=== PATIENT | male | born 1960 | race African-American/Black ===

== ENCOUNTER 2016-11-06 20:04 | Emergency (ER) | payer SELFPAY ==
[~2016-11-06] VITALS: Ht 195.6 cm; Wt 112.2 kg
[2016-11-06 20:09] VITALS: BP 142/101; PULSE 90; RESP 16; TEMP 98.6; O2SAT 98
[2016-11-06] MEDS ORDERED: METF1000 PO (20:30)
[2016-11-06] MEDS ORDERED: ACETAMINOPHEN/HYDROcodone 325 MG/5 MG TAB PO ONE (20:30)
[2016-11-06] MEDS ORDERED: HYDR25TA5 PO (20:30)
[2016-11-06] MEDS ORDERED: AMLO10 PO (20:30)
[2016-11-06] MEDS ORDERED: ENAL20TA PO (20:30)
--- NOTE | 2016-11-06 20:30 | PD ---
HPI Chief Complaint: Injury Time Seen by Provider: 20:30 Travel History International Travel<30 days: No Contact w/Intl Traveler<30days: No Traveled to known affect area: No History of Present Illness HPI 56-year-old male presents to the emergency department for evaluation of left knee pain for one week. Denies any known injury or trauma to the left knee. States that the pain is to the medial and lateral anterior aspects. Pain is aggravated with movement and palpation. Denies any alleviating factors. He has not taken anything for symptoms so far. Describes it as a throbbing pain. Denies any fever, chills, nausea, vomited, numbness or tingling, weakness. He has been ambulating on the leg. Denies any prior injury or trauma to the knee. Patient is also requesting refills of blood pressure medication as he has been out for 3 weeks. PFSH Past Medical History High Cholesterol: Yes Diabetes: Yes (metformin) Patient Takes Glucophage: Yes Hypertension: Yes Influenza Vaccination: Yes Social History Alcohol Use: No Tobacco Use: Yes (1 ppd) Substance Use: No Allergies-Medications (Allergen,Severity, Reaction): Coded Allergies: No Known Allergies (Unverified , 11/06/16) Reported Meds & Prescriptions Reported Meds & Active Scripts Active Amlodipine (Amlodipine Besylate) 10 Mg Tab 10 Mg PO DAILY Naproxen 500 Mg Tab 500 Mg PO BID 7 Days Reported Humulin R Inj (Insulin Human Regular) 1,000 Unit/10 Ml Vial 1-9 Units SQ ACHS Max dose at bedtime( )units; sugars < 70(0)units; sugars 150-199,(1)unit; sugars 200-249(3)units; sugars 250-299,(5)units; sugars 300-349(7)units; sugars more than 349(9)units. Hydrochlorothiazide 25 Mg Tab Unknown Dose PO DAILY Norvasc (Amlodipine Besylate) 10 Mg Tab 10 Mg PO DAILY Enalapril (Enalapril Maleate) 20 Mg Tab Unknown Dose PO DAILY Metformin (Metformin HCl) 1,000 Mg Tab 1,000 Mg PO BIDPC With meals Review of Systems Except as stated in HPI: all other systems reviewed are Neg Physical Exam Narrative GENERAL: Well-nourished and well-developed pleasant patient in no acute distress who is nontoxic appearing. SKIN: Warm and dry. HEAD: Normocephalic and atraumatic. EYES: No injection, drainage, or hyphema noted. PERRLA. EOMI. ENT: No nasal drainage noted. Oropharynx is clear. NECK: Supple and the trachea is midline. CARDIOVASCULAR: Regular rate and rhythm. RESPIRATORY: Breath sounds are equal bilaterally with no accessory muscle use, wheezing, rhonchi, or crackles. MUSCULOSKELETAL: Tenderness to palpation of the anterior medial and lateral aspects of the knee. Patient has full range motion of the left knee however pain is elicited with flexion. Negative AP drawer sign, the joint is stable. DP pulses are 2+ bilaterally. Sensation is intact. No obvious deformities, swelling, cyanosis, or ecchymosis is present throughout the upper and lower extremities. Patient has full range of motion without any signs of neurovascular compromise. NEUROLOGICAL: Awake, alert, and oriented. Normal speech and gait. Cranial nerves are grossly intact. Data Data Last Documented VS Vital Signs Date Time Temp Pulse Resp B/P Pulse Ox O2 Delivery O2 Flow Rate FiO2 11/06/16 20:09 98.6 90 16 142/101 98 Orders Acetamin-Hydrocod 325-5 Mg (Dighton 5-325 (11/06/16 20:30) Knee, Complete (4vws) (11/06/16 20:29) [facility] Medical Decision Making Medical Screen Exam Complete: Yes Emergency Medical Condition: Yes Differential Diagnosis Sprain versus arthritis versus gout Narrative Course 56-year-old male presents to the emergency department for evaluation of left knee pain for one week. Patient is afebrile, vital signs are stable. He is slightly hypertensive with a blood pressure 142/101 however has not taken his blood pressure medication in the last 3 weeks. The patient's left lower extremity is neurovascularly intact. X-ray imaging of the left knee has been ordered and is pending. Patient is administered Lortab 5325 milligrams orally. X-ray of the left knee shows moderate pyrophosphate arthropathy, no acute abnormalities. Discussed x-ray findings with the patient. He'll be discharged with a prescription for NSAIDs and a refill of his amlodipine. He is given resources for finding a primary care physician in the area. Patient verbalizes understanding and agreement with treatment plan. I discussed the case with my attending physician Dr. Mclaughlin who is aware of the patients history, physical examination findings, and treatment plan. Diagnosis Primary Impression: Left knee pain Qualified Code: M25.562 - Acute pain of left knee Additional Impression: Medication refill Referrals: [facility] Primary Care Physician Patient Instructions: General Instructions, Knee Pain (ED), Osteoarthritis (ED) Additional Instructions: Matt wrap. Elevate. Apply ice for 20 minutes on, 20 minutes off. Take medications as prescribed. Follow-up with your Primary Care Physician. Return to the ED for any acute worsening of symptoms. Med/Other Pt SpecificInfo: Prescription(s) given Scripts Amlodipine 10 Mg Tab10 Mg PO DAILY #30 TAB Ref 0 Prov:Doris Mclaughlin MD 11/06/16 Naproxen 500 Mg [id number] Mg PO BID 7 Days Ref 0 Prov:Doris Mclaughlin MD 11/06/16 Disposition: 01 DISCHARGE HOME Condition: Stable Mine Banerjee Nov 06, 2016 20:30
[2016-11-06] MEDS ORDERED: INSU100V2 SQ (20:38)
--- NOTE | 2016-11-06 21:01 | RADHPO ---
EXAM DATE/TIME: 11/06/2016 20:41 [facility] COMPARISON: No previous studies available for comparison. INDICATIONS : Left knee pain and swelling. MEDICAL HISTORY : None. SURGICAL HISTORY : None. ENCOUNTER: Initial ACUITY: 3 days PAIN SCORE: 7/10 LOCATION: Left knee FINDINGS: Chondrocalcinosis is present indicating pyrophosphate deposition disorder. Moderate arthritic changes are present in Tricompartmental distribution. There is a small suprapatellar effusion. There is no e vidence of fracture or destructive change. CONCLUSION: Moderate pyrophosphate arthropathy Marky Polk MD on November 06, 2016 at 20:58 Board Certified Radiologist. This report was verified electronically.
[2016-11-06] MEDS ORDERED: AMLO10TA2 PO (21:18)
[2016-11-06] MEDS ORDERED: NAPR500T PO (21:18)
== END 2016-11-06 21:26 | disposition home or self-care (01) ==
LOC: PHEFT 20:04
DX: M25.562 Pain in left knee (principal)
CPT/HCPCS: 73564; 99283

== ENCOUNTER 2016-11-28 20:15 | Emergency (ER) | payer SELFPAY ==
[~2016-11-28] VITALS: Ht 195.6 cm; Wt 111.6 kg
[~2016-11-28 20:15] MED LIST: AMLO10 PO; AMLO10TA2 PO; ENAL20TA PO; HYDR25TA5 PO; INSU100V2 SQ; METF1000 PO; NAPR500T PO
[2016-11-28 20:18] VITALS: BP 157/108; PULSE 102; RESP 14; TEMP 98.5; O2SAT 98
[2016-11-28] MEDS ORDERED: LISI2.5T3 PO (20:32)
--- NOTE | 2016-11-28 21:16 | PD ---
HPI Chief Complaint: Foreign Body Time Seen by Provider: 21:00 Travel History International Travel<30 days: No Contact w/Intl Traveler<30days: No Traveled to known affect area: No History of Present Illness HPI 56-year-old male presents to the emergency room for evaluation of a foreign body to his scalp. Patient was working in the yard when he got a spike from a love stuck in his scalp. His and mother were unable to get it out. He reports moderate pain when he lay his head on the pillow and during the shower. He has not taken anything for pain. History of hypertension and diabetes. PFSH Past Medical History High Cholesterol: Yes Diabetes: Yes Patient Takes Glucophage: Yes Hypertension: Yes Reproductive: Yes (Genital herpes) Tetanus Vaccination: < 5 Years Influenza Vaccination: Yes Past Surgical History Surgical History: No Previous Surgery Social History Alcohol Use: No Tobacco Use: Yes (1 PPD) Substance Use: No Allergies-Medications (Allergen,Severity, Reaction): Coded Allergies: No Known Allergies (Unverified , 11/28/16) Reported Meds & Prescriptions Reported Meds & Active Scripts Active Naproxen 500 Mg Tab 500 Mg PO BID 7 Days Reported Lisinopril 2.5 Mg Tab 2.5 Mg PO DAILY Humulin R Inj (Insulin Human Regular) 1,000 Unit/10 Ml Vial 1-9 Units SQ ACHS Max dose at bedtime( )units; sugars < 70(0)units; sugars 150-199,(1)unit; sugars 200-249(3)units; sugars 250-299,(5)units; sugars 300-349(7)units; sugars more than 349(9)units. Hydrochlorothiazide 25 Mg Tab Unknown Dose PO DAILY Norvasc (Amlodipine Besylate) 10 Mg Tab 10 Mg PO DAILY Enalapril (Enalapril Maleate) 20 Mg Tab Unknown Dose PO DAILY Metformin (Metformin HCl) 1,000 Mg Tab 1,000 Mg PO BIDPC With meals Review of Systems Except as stated in HPI: all other systems reviewed are Neg Physical Exam Narrative GENERAL: Well-nourished, well-developed male in no acute distress. Afebrile. Ambulatory. SKIN: Warm and dry. There is a small foreign body in the left lateral scalp. No swelling erythema or induration. No bleeding. HEAD: Normocephalic. EYES: No scleral icterus. No injection or drainage. NECK: Supple, trachea midline. No JVD or lymphadenopathy. CARDIOVASCULAR: Regular rate and rhythm without murmurs, gallops, or rubs. RESPIRATORY: Breath sounds equal bilaterally. No accessory muscle use. PSYCHIATRIC: No delusional thought processes. No hallucinations. Data Data Last Documented VS Vital Signs Date Time Temp Pulse Resp B/P Pulse Ox O2 Delivery O2 Flow Rate FiO2 11/28/16 20:18 98.5 102 14 157/108 98 MDM Medical Decision Making Medical Screen Exam Complete: Yes Emergency Medical Condition: Yes Medical Record Reviewed: Yes Differential Diagnosis Foreign body versus infection versus wound Narrative Course 56-year-old male presents to the emergency room for evaluation of foreign body to his left lateral scalp. Patient was stabbed in the head with the above the shoulder yardwork earlier today. He was unable to obtain the foreign body. Physical exam reveals a 0.5 cm spiked, wooden foreign body to the left lateral scalp. No evidence of infection. It was removed without difficulty using tweezers. Patient was discharged with wound care instructions and told to follow up with a PCP return for worsening symptoms. He understands and agrees to plan. Diagnosis Primary Impression: Foreign body of scalp Qualified Code: S00.05XA - Foreign body of scalp, initial encounter Referrals: Primary Care Physician Patient Instructions: General Instructions, Soft Tissue Foreign Body (ED) Additional Instructions: Rest and drink plenty of fluids. Keep area clean and dry. Apply triple antibiotic ointment or alcohol daily until healed. Follow-up with a primary care physician. Return to the emergency room for worsening symptoms. Med/Other Pt SpecificInfo: Prescription(s) given Disposition: 01 DISCHARGE HOME Condition: Stable Breana Clements November 28, 2016 21:16
== END 2016-11-28 21:20 | disposition home or self-care (01) ==
LOC: PHEFT 20:15
DX: S01.04XA Puncture wound with foreign body of scalp, initial encounter (principal); I10 Essential (primary) hypertension; E11.9 Type 2 diabetes mellitus without complications; E78.00 Pure hypercholesterolemia, unspecified; F17.210 Nicotine dependence, cigarettes, uncomplicated; W45.8XXA Other foreign body or object entering through skin, initial encounter; Y93.H9 Activity, other involving exterior property and land maintenance, building and construction; Y92.007 Garden or yard of unspecified non-institutional (private) residence as the place of occurrence of the external cause; Y99.8 Other external cause status
CPT/HCPCS: 99283

== ENCOUNTER 2016-12-29 19:08 | Observation (INO) | payer OTHER ==
[~2016-12-29] VITALS: Ht 195.6 cm; Wt 109.6 kg
[2016-12-29] VITALS (10 sets, daily range): BP systolic 122–168; BP diastolic 8–103; PULSE 79–88; RESP 17–20; TEMP 98.9; O2SAT 97–99
[~2016-12-29 19:08] MED LIST changes: -AMLO10TA2 PO; +LISI2.5T3 PO
[2016-12-29] MEDS ORDERED: NITROGLYCERIN 0.4 MG SL 25 TABS/BTL SL STA (19:22)
[2016-12-29] MEDS ORDERED: ASPIRIN 81 MG CHEW TAB PO STA (19:22)
[2016-12-29] MEDS ORDERED: SODIUM CHLOR 0.9% 1000 ML INJ 1,000 ML IV ONE (19:22)
--- NOTE | 2016-12-29 19:28 | PD ---
HPI Chief Complaint: Chest Pain Time Seen by Provider: 19:17 Travel History International Travel<30 days: No Contact w/Intl Traveler<30days: No Traveled to known affect area: No History of Present Illness HPI This 56-year-old male is complaining of chest pain. He says he started having pain at around 1:00 this afternoon. It is a pain over the lower sternal area and there is been coming and going since then. He has not been short of breath. There is no radiation of the pain. He has not been diaphoretic. He is not having pain right now, he says it went away just a few minutes before I saw him. He has no history of heart disease. He does smoke cigarettes. He has a history of hypertension and diabetes. He does not have a physician at this time. His most recent episode of pain lasted about half an hour PFSH Past Medical History High Cholesterol: Yes Diabetes: Yes Hypertension: Yes Reproductive: Yes (Genital herpes) Social History Alcohol Use: No Tobacco Use: Yes (1 PPD) Substance Use: No Allergies-Medications (Allergen,Severity, Reaction): Coded Allergies: No Known Allergies (Unverified , 12/29/16) Reported Meds & Prescriptions Reported Meds & Active Scripts Active Naproxen 500 Mg Tab 500 Mg PO BID 7 Days Reported Lisinopril 2.5 Mg Tab 2.5 Mg PO DAILY Humulin R Inj (Insulin Human Regular) 1,000 Unit/10 Ml Vial 1-9 Units SQ ACHS Max dose at bedtime( )units; sugars < 70(0)units; sugars 150-199,(1)unit; sugars 200-249(3)units; sugars 250-299,(5)units; sugars 300-349(7)units; sugars more than 349(9)units. Hydrochlorothiazide 25 Mg Tab Unknown Dose PO DAILY Norvasc (Amlodipine Besylate) 10 Mg Tab 10 Mg PO DAILY Enalapril (Enalapril Maleate) 20 Mg Tab Unknown Dose PO DAILY Metformin (Metformin HCl) 1,000 Mg Tab 1,000 Mg PO BIDPC With meals Review of Systems General / Constitutional: No: Fever, Chills Eyes: No: Diploplia, Blurred Vision HENT: No: Headaches, Vertigo Cardiovascular: Positive: Chest Pain or Discomfort, No: Palpitations Respiratory: No: Cough, Shortness of Breath Gastrointestinal: No: Nausea, Vomiting Genitourinary: No: Frequency, Dysuria Musculoskeletal: No: Myalgias, Arthralgias Skin: No Itching, No Dryness Endocrine: No: Heat Intolerance, Cold Intolerance Hematologic/Lymphatic: No: Easy Bruising Physical Exam Narrative GENERAL: Well-developed male SKIN: Focused skin assessment warm/dry. HEAD: Atraumatic. Normocephalic. EYES: Pupils equal and round. No scleral icterus. No injection or drainage. ENT: No nasal bleeding or discharge. Mucous membranes pink and moist. NECK: Trachea midline. No JVD. CARDIOVASCULAR: Regular rate and rhythm. No murmur appreciated. There is no chest wall tenderness RESPIRATORY: No accessory muscle use. Clear to auscultation. Breath sounds equal bilaterally. GASTROINTESTINAL: Abdomen soft, non-tender, nondistended. Hepatic and splenic margins not palpable. MUSCULOSKELETAL: No obvious deformities. No clubbing. No cyanosis. No edema. NEUROLOGICAL: Awake and alert. No obvious cranial nerve deficits. Motor grossly within normal limits. Normal speech. PSYCHIATRIC: Appropriate mood and affect; insight and judgment normal. Data Data Last Documented VS Vital Signs Date Time Temp Pulse Resp B/P Pulse Ox O2 Delivery O2 Flow Rate FiO2 12/29/16 20:35 82 17 128/68 97 Room Air 12/29/16 19:18 98.9 Orders Troponin I (12/29/16 19:22) Complete Blood Count With Diff (12/29/16 19:22) Basic Metabolic Panel (Bmp) (12/29/16 19:22) Magnesium (Mg) (12/29/16 19:22) Prothrombin Time / Inr (Pt) (12/29/16 19:22) Act Partial Throm Time (Ptt) (12/29/16 19:22) B-Type Natriuretic Peptide (12/29/16 19:22) Chest, Single Ap (12/29/16 19:22) Electrocardiogram (12/29/16 19:22) Oxygen Administration (12/29/16 19:22) Iv Access Insert/Monitor (12/29/16 19:22) Oximetry (12/29/16 19:22) Sodium Chlor 0.9% 1000 Ml Inj (Ns 1000 M (12/29/16 19:22) Sodium Chloride 0.9% Flush (Ns Flush) (12/29/16 19:30) Aspirin Chew (Aspirin Chew) (12/29/16 19:22) Nitroglycerin Sl (Nitrostat Sl) (12/29/16 19:22) Nitroglycerin 2% Oint (Nitroglycerin 2% (12/29/16 19:30) Amlodipine (Norvasc) (12/30/16 09:00) Labs Laboratory Tests Test 12/29/16 19:20 White Blood Count 10.1 TH/MM3 Red Blood Count 6.16 MIL/MM3 Hemoglobin 15.3 GM/DL Hematocrit 48.5 % Mean Corpuscular Volume 78.7 FL Mean Corpuscular Hemoglobin 24.9 PG Mean Corpuscular Hemoglobin 31.6 % Concent Red Cell Distribution Width 14.7 % Platelet Count 288 TH/MM3 Mean Platelet Volume 8.6 FL Neutrophils (%) (Auto) 56.4 % Lymphocytes (%) (Auto) 34.5 % Monocytes (%) (Auto) 5.0 % Eosinophils (%) (Auto) 3.4 % Basophils (%) (Auto) 0.7 % Neutrophils # (Auto) 5.7 TH/MM3 Lymphocytes # (Auto) 3.5 TH/MM3 Monocytes # (Auto) 0.5 TH/MM3 Eosinophils # (Auto) 0.3 TH/MM3 Basophils # (Auto) 0.1 TH/MM3 CBC Comment AUTO DIFF Differential Comment AUTO DIFF CONFIRMED Prothrombin Time 10.4 SEC Prothromb Time International 0.9 RATIO Ratio Activated Partial 30.9 SEC Thromboplast Time Sodium Level 139 MEQ/L Potassium Level 3.6 MEQ/L Chloride Level 102 MEQ/L Carbon Dioxide Level 32.4 MEQ/L Anion Gap 5 MEQ/L Blood Urea Nitrogen 14 MG/DL Creatinine 1.30 MG/DL Estimat Glomerular Filtration 70 ML/MIN Rate Random Glucose 230 MG/DL Calcium Level 8.7 MG/DL Magnesium Level 1.8 MG/DL Troponin I LESS THAN 0.02 NG/ML B-Type Natriuretic Peptide 7 PG/ML [facility] Medical Decision Making Medical Screen Exam Complete: Yes Emergency Medical Condition: Yes Medical Record Reviewed: Yes Differential Diagnosis Differential includes angina, acute coronary syndrome, atypical chest pain, GERD Narrative Course EKG shows sinus rhythm. Computer interpreted some anteroseptal ST elevation. This appears to be less than 1 mm in V1 and V2 and V3 Chest x-ray is negative. Troponin is negative. Case was discussed with Dr. Green who recommends admission at main Hospital Diagnosis Primary Impression: Chest pain Qualified Code: R07.9 - Chest pain, unspecified type Additional Impression: POSSIBLE ACS Admitting Information Admitting Physician Requests: Observation Carlos Marx MD Dec 29, 2016 19:28
[2016-12-29] MEDS ORDERED: SODIUM CHLORIDE 0.9% FLUSH 10 ML FLUSH IVF PRN (19:30)
[2016-12-29] MEDS ORDERED: NITROGLYCERIN 2% OINT 1 GM PACKET TOPICAL ONE (19:30)
[2016-12-29 19:40] LABS: AUTOMATED NEUTROPHIL # 5.7 TH/MM3 (1.8-7.7); BASOPHIL # 0.1 TH/MM3 (0-0.2); BASOPHIL % 0.7 % (0.0-2.0); EOSINOPHIL # 0.3 TH/MM3 (0-0.4); EOSINOPHIL % 3.4 % (0.0-4.0); HEMATOCRIT 48.5 % (39.0-51.0); LYMPH % 34.5 % (9.0-44.0); LYMPHOCYTE # 3.5 TH/MM3 (1.0-4.8); MEAN CELL VOLUME 78.7 FL (80.0-100.0); MEAN CORPUSCULAR HEMOGLOBIN 24.9 PG (27.0-34.0); MEAN CORPUSCULAR HGB CONC 31.6 % (32.0-36.0); NEUT % 56.4 % (16.0-70.0); PLATELET COUNT 288 TH/MM3 (150-450); RED BLOOD COUNT 6.16 MIL/MM3 (4.50-5.90); RED CELL DISTRIBUTION WIDTH 14.7 % (11.6-17.2); WHITE BLOOD COUNT 10.1 TH/MM3 (4.0-11.0)
[2016-12-29 19:50] LABS: CHLORIDE 102 MEQ/L (98-107); POTASSIUM 3.6 MEQ/L (3.5-5.1); SODIUM (NA) 139 MEQ/L (136-145)
[2016-12-29 19:53] LABS: ANION GAP 5 MEQ/L (5-15); BICARBONATE 32.4 MEQ/L (21.0-32.0); BLOOD UREA NITROGEN 14 MG/DL (7-18); MAGNESIUM 1.8 MG/DL (1.5-2.5)
[2016-12-29 19:55] LABS: APTT (PATIENT) 30.9 SEC (24.3-30.1); INTERNATIONAL NORMALIZED RATIO 0.9 RATIO; PROTHROMBIN TIME - PATIENT 10.4 SEC (9.8-11.6)
[2016-12-29 19:56] LABS: GLOMERULAR FILTRATION RATE 70 ML/MIN (>89); HEMO FLAGS AUTO DIFF
--- NOTE | 2016-12-29 20:13 | RADHPO ---
EXAM DATE/TIME: 12/29/2016 19:43 [facility] COMPARISON: No previous studies available for comparison. INDICATIONS : Chest pain. MEDICAL HISTORY : None. SURGICAL HISTORY : None. ENCOUNTER: Initial ACUITY: 1 day PAIN SCORE: 5/10 LOCATION: Bilateral chest FINDINGS: A single view of the chest demonstrates the lungs to be symmetrically aerated without evidence of mas s, infiltrate or effusion. The cardiomediastinal contours are unremarkable. Osseous structures are intact. CONCLUSION: No evidence of acute cardiopulmonary disease. Marky Vincent MD on December 29, 2016 at 20:11 Board Certified Radiologist. This report was verified electronically.
[2016-12-29 20:25] LABS: SCAN/DIFF AUTO DIFF CONFIRMED
[2016-12-29] MEDS ORDERED: ACETAMINOPHEN 500 MG CPLT PO PRN (21:30)
[2016-12-29] MEDS ORDERED: NITROGLYCERIN 0.4 MG SL 25 TABS/BTL SL PRN (21:30)
[2016-12-29] MEDS ORDERED: ACETAMINOPHEN/HYDROcodone 325 MG/7.5 MG TAB PO PRN (21:30)
[2016-12-29] MEDS: HEPARIN SODIUM - SQ 10,000 UNITS/ML VIAL SQ SCH (22:21)
[2016-12-30] VITALS (9 sets, daily range): BP systolic 116–150; BP diastolic 68–101; PULSE 68–84; RESP 16–21; TEMP 97.9–98.4; O2SAT 96–99
[2016-12-30 03:12] LABS: HDL CHOLESTEROL 24.6 MG/DL (40.0-60.0); LDL CHOLESTEROL 94 MG/DL (0-99)
[2016-12-30 05:43] LABS: CREATINE KINASE 98 U/L (39-308)
[2016-12-30] MEDS: HEPARIN SODIUM - SQ 10,000 UNITS/ML VIAL SQ SCH ×3 (06:41→20:18)
--- NOTE | 2016-12-30 07:45 | HHI.HP ---
HPI Service [facility] Primary Care Physician No Primary Care Physician Admission Diagnosis CHEST PAIN, POSSIBLE ACS Diagnoses: Chief Complaint: chest pain Travel History International Travel<30 Days: No Contact w/Intl Traveler <30 Da: No Traveled to Known Affected Are: No History of Present Illness Written by Rosibel Katz, acting as scribe for Dr. Banerjee on 12/30/16 at 07:40. 56-year-old male with history of hypertension, hyperlipidemia, diabetes mellitus , tobacco use, presents with a 1 day history of chest pain. The patient reports yesterday morning he woke up feeling well, then around 1pm he started feeling like he had "gas" in his chest. He locates the pain to mid-substernal without radiation, described as "gas pains" that varies in intensity. Denies any associated nausea, diaphoresis, or shortness of breath. He tried to rest and drink water however the pain became more severe therefore his brought him to the ER. He denies any history of AR or CAD. He denies any prior cardiac work up. He does continue to smoke cigarettes 1 PPD. He denies any recent fevers/ chills, nausea/vomiting, but did have a few episodes of diarrhea recently. Of note the patient does take Naproxen intermittently over the past year, took 3 tablets total this week. He's never been diagnosed with gastric ulcer. Review of Systems Except as stated in HPI: all other systems reviewed are Neg Past Family Social History Past Medical History Hypertension Hyperlipidemia Diabetes Mellitus Past Surgical History Denies any prior surgeries Reported Medications Lisinopril 2.5 Mg Tab 2.5 Mg PO DAILY Humulin R Inj (Insulin Human Regular) 1,000 Unit/10 Ml Vial 1-9 Units SQ ACHS Max dose at bedtime( )units; sugars < 70(0)units; sugars 150-199,(1)unit; sugars 200-249(3)units; sugars 250-299,(5)units; sugars 300-349(7)units; sugars more than 349(9)units. Hydrochlorothiazide 25 Mg Tab Unknown Dose PO DAILY Norvasc (Amlodipine Besylate) 10 Mg Tab 10 Mg PO DAILY Enalapril (Enalapril Maleate) 20 Mg Tab Unknown Dose PO DAILY Metformin (Metformin HCl) 1,000 Mg Tab 1,000 Mg PO BIDPC With meals Allergies: Coded Allergies: No Known Allergies (Unverified , 12/29/16) Active Ordered Medications Current Medications Medications (Trade) Dose Ordered Sig/Kana Route Start Time Stop Time Status Last Admin (NS Flush) 2 ml UNSCH PRN IVF 12/29/16 19:30 12/29/16 19:38 (Norvasc) 10 mg DAILY PO 12/30/16 09:00 (Aspirin) 325 mg DAILY PO 12/30/16 09:00 (Nitrostat Sl) 0.4 mg Q5M PRN SL 12/29/16 21:30 (Tylenol) 500 mg Q4H PRN PO 12/29/16 21:30 ([place] 7.5-325 Mg) 1 tab Q4H PRN PO 12/29/16 21:30 (Heparin Inj) 5,000 units Q8H SQ 12/29/16 22:00 12/30/16 06:41 Family History Significant family history for diabetes Mother with diabetes Uncle with stroke Social History Smokes tobacco 1 PPD Denies any alcohol or illicit drug use Physical Exam Vital Signs Vital Signs Date Time Temp Pulse Resp B/P Pulse Ox O2 Delivery O2 Flow Rate FiO2 12/30/16 04:02 98.4 68 18 116/75 97 12/30/16 03:03 70 12/30/16 01:41 98.0 78 18 121/68 97 12/29/16 22:00 79 16 123/73 97 12/29/16 22:00 80 17 135/8 97 Room Air 12/29/16 21:45 Room Air 12/29/16 21:00 97 Room Air 12/29/16 21:00 Room Air 12/29/16 21:00 79 17 128/77 98 Room Air 12/29/16 20:35 82 17 128/68 97 Room Air 12/29/16 20:20 79 17 122/84 97 Room Air 12/29/16 19:45 84 18 141/90 98 12/29/16 19:40 84 19 141/92 98 Room Air 12/29/16 19:30 84 18 140/94 98 Room Air 12/29/16 19:20 86 18 158/103 99 Room Air 12/29/16 19:18 98.9 88 20 168/101 99 12/29/16 19:15 100 Room Air 12/29/16 19:15 86 20 151/100 98 Room Air Physical Exam GENERAL: Well-nourished, well-developed pleasant middle aged AA male patient in [facility]. SKIN: Warm and dry. No rash. HEAD: Normocephalic. Atraumatic. EYES: Pupils equal and round. No scleral icterus. No injection or drainage. ENT: No nasal bleeding or discharge. Mucous membranes pink and moist. NECK: Supple. Trachea midline. CARDIOVASCULAR: Regular rate and rhythm. S1, S2 noted. No murmur appreciated. RESPIRATORY: No accessory muscle use. Clear to auscultation. Breath sounds equal bilaterally. GASTROINTESTINAL: Abdomen soft, nondistended, mild epigastric tenderness to palpation. Normoactive bowel sounds x4. MUSCULOSKELETAL: No obvious deformities. Extremities without clubbing, cyanosis , or edema. NEUROLOGICAL: Awake and alert. No obvious cranial nerve deficits. Motor grossly within normal limits. 5/5 muscle strength in bilateral upper and lower extremities. Normal speech. PSYCHIATRIC: Appropriate mood and affect; insight and judgment normal. Laboratory Laboratory Tests Test 12/29/16 12/30/16 19:20 02:10 White Blood Count 10.1 Red Blood Count 6.16 Hemoglobin 15.3 Hematocrit 48.5 Mean Corpuscular Volume 78.7 Mean Corpuscular Hemoglobin 24.9 Mean Corpuscular Hemoglobin 31.6 Concent Red Cell Distribution Width 14.7 Platelet Count 288 Mean Platelet Volume 8.6 Neutrophils (%) (Auto) 56.4 Lymphocytes (%) (Auto) 34.5 Monocytes (%) (Auto) 5.0 Eosinophils (%) (Auto) 3.4 Basophils (%) (Auto) 0.7 Neutrophils # (Auto) 5.7 Lymphocytes # (Auto) 3.5 Monocytes # (Auto) 0.5 Eosinophils # (Auto) 0.3 Basophils # (Auto) 0.1 CBC Comment AUTO DIFF Differential Comment AUTO DIFF CONFIRMED Prothrombin Time 10.4 Prothromb Time International 0.9 Ratio Activated Partial 30.9 Thromboplast Time Sodium Level 139 Potassium Level 3.6 Chloride Level 102 Carbon Dioxide Level 32.4 Anion Gap 5 Blood Urea Nitrogen 14 Creatinine 1.30 Estimat Glomerular Filtration 70 Rate Random Glucose 230 Calcium Level 8.7 Magnesium Level 1.8 Troponin I LESS THAN 0.02 LESS THAN 0.02 B-Type Natriuretic Peptide 7 Total Creatine Kinase 98 Triglycerides Level 120 Cholesterol Level 143 LDL Cholesterol 94 HDL Cholesterol 24.6 Cholesterol/HDL Ratio 5.81 Result Diagram: 12/29/16191912/29/161919 Imaging Last Impressions Chest X-Ray 12/29/161921 Signed Impressions: Service Date/Time: Thursday, December 29, 2016 19:43 - CONCLUSION: No evidence of acute cardiopulmonary disease. Marky Vincent MD Assessment and Plan Problem List: (1) Chest pain ICD Code: R07.9 Status: Acute (2) Acute coronary syndrome ICD Code: I24.9 Status: Acute Assessment and Plan 56-year-old male with history of hypertension, hyperlipidemia, diabetes mellitus , tobacco use, presents with a 1 day history of chest pain. Chest Pain: rule out ACS. CXR images reviewed, unremarkable. -Troponins negative x2, checking 3rd set of cardiac enzymes/EKG. EKG reviewed , mostly unremarkable, but does show less than 1mm ST elevation in V1, V2. -Given aspirin, nitro ointment -ER MD discussed with catshovel driver Dr. Green, who recommended admission to [facility] for cardiology evaluation. -Consult cardiology -Plan for echo and nuclear stress test today. Epigastric Tenderness: possibility of GI source of chest pain, patient does use chronic NSAIDs at home. -will start PPI -monitor for improvement Hypertension: chronic, BP fairly well controlled. -continue patient's patric, norvasc, HCTZ -monitor BP, adjust antihypertensives as needed -of note, patient reports being on both lisinopril and enalpril, discussed with him, plan to only continue lisinopril at discharge Hyperlipidemia: chronic -lipid panel wnl -depending on results of Nuclear Stress Test, may need to start statin -check LFTs Diabetes Mellitus: chronic, fairly well controlled on metformin, has SSI at home that he uses only as needed -check HgbA1c -hold metformin for now -monitor Accu-cheks and cover with SSI Tobacco Use: chronic -counseled on cessation -avoid nicotine patch due to vasoconstriction DVT Prophylaxis: teds/SCDs This note was transcribed by scribjacob [Rosibel Katz]. I, Dr. Randy Banerjee personally performed the history, physical exam, and medical decision making; and confirmed the accuracy of the information in the transcribed note. Authenticated by Dr. Randy Banerjee on 12/30/16 at 13:58. Discussed Condition With Patient, RN Problem Qualifiers (1) Chest pain: Qualified Code: R07.9 - Chest pain, unspecified type Rosibel Katz PA-C Dec 30, 2016 7:44 am Randy Banerjee MD Dec 30, 2016 1:58 pm
[2016-12-30] MEDS ORDERED: ASPIRIN 325 MG TAB PO SCH (09:00)
[2016-12-30] MEDS ORDERED: DEXTROSE 50% IN WATER 50 ML VIAL(D50) IV PRN (10:30)
[2016-12-30] MEDS ORDERED: GLUCAGON 1 MG/ML VIAL OTHER PRN (10:30)
[2016-12-30] MEDS ORDERED: PILL SPLITTER OTHER PRN (10:30)
[2016-12-30] MEDS ORDERED: REGADENOSON INJ 0.4 MG/5 ML SYR ONE (10:38)
--- NOTE | 2016-12-30 11:19 | MB ---
cc: GALEN FRANCO DO DATE OF CONSULTATION December 30, 2016 REASON FOR CONSULTATION Chest pain. HISTORY OF PRESENT ILLNESS Nilesh Samson is a pleasant 56-year-old male who presented to [facility] Emergency Room due to chest pain. The patient reports that yesterday woke up feeling well and then at around 01:00 p.m. he started feeling gas in his chest. He locates it to the lower sternum/epigastric area without radiation. He states that it does not feel like pressure or stabbing in nature. He denies nausea, diaphoresis or shortness of breath. He tried to relax and the pain did not go away so he came to the emergency room. 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 He states that he is taking naproxen intermittently over the past year and took three tablets total this week. He has never been diagnosed with a gastric ulcer. PAST MEDICAL HISTORY 1. Hypertension. 2. Hyperlipidemia. 3. Diabetes mellitus. PAST SURGICAL HISTORY Denies. ALLERGIES No known drug allergies. MEDICATIONS 1. Lisinopril 2.5 mg daily 1. Humulin R sliding scale. 2. Hydrochlorothiazide 25 mg daily. 3. Norvasc 10 mg daily. 4. Enalapril 20 mg daily. 5. Metformin 1000 mg b.i.d. FAMILY HISTORY Positive for diabetes. Denies premature coronary artery disease or sudden cardiac within the family. SOCIAL HISTORY The patient smokes one-pack of cigarettes per day. Denies alcohol or drug abuse. REVIEW OF SYSTEMS 14-systems were reviewed including osteopathic pertinent positives and negatives above, otherwise negative. PHYSICAL EXAMINATION VITAL SIGNS: Temperature 98.2, heart rate 72, blood pressure 132/89, respirations 16, pulse ox 97% on room air. IN GENERAL: The patient appears well, in no acute distress, alert, awake and oriented x 3. Extraocular muscles intact. Mucous membranes moist. NECK: Supple. No JVD at 45 degrees. No carotid bruits heard bilaterally. Carotid upstroke is brisk in nature. HEART: Regular rate and rhythm. Positive first and second heart sounds with no murmurs, gallops or rubs. PMI is nondisplaced. LUNGS: Clear to auscultation bilaterally. No wheezes, rales or rhonchi. ABDOMEN: Soft, non-tender, non-distended. No organomegaly noted. EXTREMITIES: No clubbing, cyanosis or edema. Femoral and distal pulses intact bilaterally. NEUROLOGIC: No focal deficits. SKIN: Warm, dry and intact. OSTEOPATHIC EXAM: No kyphoscoliosis, lordosis or paraspinal tender points. LABORATORY FINDINGS Hemoglobin 15.3, hematocrit 48.5, platelets 288. Potassium 3.6, BUN 14, creatinine 1.3. Troponin negative x 2. BNP 7, triglycerides 120, total cholesterol 143, LDL 94, HDL 24.6. ELECTROCARDIOGRAM (December 30, 2016, at 03:58) Sinus rhythm, possible left atrial enlargement, ST-T wave changes laterally possibly due to ischemia. IMPRESSION 1. Atypical chest pain. 2. Abnormal EKG with possible T-wave inversions laterally. 3. Epigastric tenderness possibly due to GI source. 4. Hypertension. 5. Hyperlipidemia. 6. Diabetes mellitus. 7. Tobacco abuse. RECOMMENDATIONS 1. Mr. Samson appears to present with atypical chest pain. My major concern is that he has multiple risk factors including being male, hypertension, hyperlipidemia, diabetes mellitus and tobacco abuse. Because of this I feel that he should undergo pharmacologic nuclear stress testing. 2. We will also check an echo to look at his overall left ventricular function, cardiac structure and possible valvopathies. 3. We will plan on continuing him on aspirin which can be changed to 81 mg daily. 4. Unsure at this time why the patient would be on enalapril and lisinopril which may be an error. 5. If stress test is negative and echo shows no concerning signs, the patient could be discharged for outpatient followup for further recommendations from a cardiovascular standpoint. 6. Discussed with the patient for greater than 3 minutes about tobacco cessation which he will consider. Thank you for allowing me to see Nilesh Samson. If there are any questions, please do not hesitate to call. Galen Franco DO VGP/SSB /10:33 AM /11:06 AM
--- NOTE | 2016-12-30 13:38 | RADRPT ---
EXAM DATE/TIME: 12/30/2016 10:11 CORRECTION Corrected on: January 05, 2017; Added surgical hx of NONE [place] COMPARISON: No previous studies available for comparison. INDICATIONS : Chest pain. Abnormal EKG. DOSE: 30.1 mCi Tc99m Myoview at stress. 10.1 mCi Tc99m Myoview at rest. 0.4 mg Lexiscan STRESS SYMPTOMS: Nausea. EJECTION FRACTION: 59% MEDICAL HISTORY : Diabetes mellitus type 2. Hypertension. Smoker. SURGICAL HISTORY : None ENCOUNTER: Initial ACUITY: 1 day PAIN SCALE: 0/10 LOCATION: chest TECHNIQUE: The patient underwent pharmacologic stress with infusion of prescribed dose. Continuous ECG tracing was monitored during stress. Gated SPECT imaging was performed after stress and conventional SPECT i maging was performed at rest. The examination was performed on a SPECT/CT scanner, both attenuation and non-corrected datasets were reviewed. FINDINGS: DISTRIBUTION: The maximum perfused segment at stress is in the anteroseptal wall. PERFUSION STUDY: The pattern of perfusion at stress is within normal limits. GATED STUDY: There is intact wall motion and thickening without hypokinetic or dyskinetic segments. CONCLUSION: No reversible perfusion defect to suggest stress-induced myocardial ischemia identified. RISK CATEGORY: Low (<1% Annual Mortality Rate) Randy Antno MD on December 30, 2016 at 13:34 Board Certified Radiologist. This report was verified electronically. on January 05, 2017 at 9:00 Board Certified Radiologist. This report was verified electronically.
[2016-12-30 13:42] LABS: ALT (GPT) 19 U/L (12-78); AST (GOT) 10 U/L (15-37)
[2016-12-30 13:44] LABS: ALKALINE PHOSPHATASE 92 U/L (45-117); INDIRECT BILIRUBIN 0.4 MG/DL (0.0-0.8); TOTAL BILIRUBIN ADULT 0.5 MG/DL (0.2-1.0)
[2016-12-30] MEDS: INSULIN ASPART SUPPLEMENTAL SCALE SQ SCH ×3 (14:15→20:23)
[2016-12-30 14:23] LABS: CREATINE KINASE 94 U/L (39-308)
[2016-12-30 17:17] LABS: HEMOGLOBIN A1a 1.3 %; HEMOGLOBIN A1b 2.6 %; HEMOGLOBIN Ao 77.4 %; HEMOGLOBIN LA1C 2.9 %; HEMOGLOBIN P3 4.6 %
--- NOTE | 2016-12-30 21:59 | EKG ---
Date Performed: 12/30/2016 Time Performed: 03:58:42 PTAGE: 56 years EKG: Sinus rhythm POSSIBLE LEFT ATRIAL ENLARGEMENT ST DEVIATION AND MODERATE T-WAVE ABNORMALITY, CONSIDER LATERAL ISCH EMIA Since previous tracing, no significant change noted ABNORMAL ECG PREVIOUS TRACING : 12/29/2016 19.08 DOCTOR: Justin Garcia Interpretating Date/Time 12/30/2016 21:56:33
--- NOTE | 2016-12-30 21:59 | EKG ---
Date Performed: 12/29/2016 Time Performed: 19:08:56 PTAGE: 56 years EKG: CONSIDER ACUTE ST ELEVATION NC Sinus rhythm . Anteroseptal ST elevation, CONSIDER ACUTE INFARCT Since previous tracing, no significant change not ed Abnormal ECG PREVIOUS TRACING : 09/14/1999 03.51 DOCTOR: Justin Garcia Interpretating Date/Time 12/30/2016 21:56:22
[2016-12-31 04:16] VITALS: PULSE 65
[2016-12-31] MEDS: HEPARIN SODIUM - SQ 10,000 UNITS/ML VIAL SQ SCH ×2 (06:33→14:00)
[2016-12-31] MEDS: INSULIN ASPART SUPPLEMENTAL SCALE SQ SCH ×2 (06:33→13:37)
[2016-12-31 07:54] VITALS: BP 138/102; PULSE 78; RESP 21; TEMP 97.9; O2SAT 97
[2016-12-31] MEDS ORDERED: HYDROCHLOROTHIAZIDE 25 MG TAB PO SCH (09:00)
[2016-12-31] MEDS ORDERED: LISINOPRIL 5 MG TAB PO SCH (09:00)
[2016-12-31] MEDS ORDERED: ASPIRIN 81 MG CHEW TAB CHEW SCH (09:00)
--- NOTE | 2016-12-31 09:35 | HHI.PR ---
Subjective Remarks Follow-up chest pain. Patient denies any further chest pain or shortness of breath. He denies any abdominal pain. Has been tolerating diet with no vomiting. He currently does not have a PCP because he has pending insurance. He does have medications at home that were provided when he was released from custodial. He wants to go home today. Objective Vitals Vital Signs Date Time Temp Pulse Resp B/P Pulse Ox O2 Delivery O2 Flow Rate FiO2 12/31/16 07:54 97.9 78 21 138/102 97 12/31/16 04:16 65 12/30/16 23:54 98.1 71 20 150/101 99 12/30/16 20:23 96 12/30/16 19:43 97.9 84 20 128/86 96 12/30/16 11:46 98.2 76 21 131/88 97 Result Diagram: 12/29/16191912/29/161919 Imaging Last Impressions Myocardial Perfusion Scan Nuc Med 12/30/16 0000 Signed Impressions: Service Date/Time: Friday, December 30, 2016 10:11 - CONCLUSION: No reversible perfusion defect to suggest stress-induced myocardial ischemia identified. RISK CATEGORY: Low (<1%% Annual Mortality Rate) Randy Anton MD Chest X-Ray 12/29/161921 Signed Impressions: Service Date/Time: Thursday, December 29, 2016 19:43 - CONCLUSION: No evidence of acute cardiopulmonary disease. Marky Vincent MD Objective Remarks GENERAL: Well-developed well-nourished. In no acute distress. SKIN: Warm and dry. No lesions noted. HEENT: Normocephalic. Pupils equal and round. Mucous membranes pink and moist. CARDIOVASCULAR: Regular rate and rhythm. No murmur appreciated. RESPIRATORY: No accessory muscle use. Clear to auscultation. Breath sounds equal bilaterally. GASTROINTESTINAL: Abdomen soft, non-tender, nondistended. Bowel sounds x4. MUSCULOSKELETAL: No obvious deformities. No clubbing or cyanosis. No edema. NEUROLOGICAL: Awake and alert. No focal neurological deficits. Moves upper and lower extremities spontaneously. Normal speech. PSYCHIATRIC: Appropriate mood and affect; insight and judgment normal. A/P Problem List: (1) Chest pain ICD Code: R07.9 Status: Acute Assessment and Plan 56-year-old male with history of hypertension, hyperlipidemia, diabetes mellitus , tobacco use, presents with a 1 day history of chest pain. Chest Pain: rule out ACS. -CXR unremarkable. -Troponins negative x3. EKG shows less than 1mm ST elevation in V1, V2. -Continue aspirin -Cardiology consulted, and agrees with stress test and echocardiogram -Stress test with no evidence of ischemia -Echocardiogram pending, discussed with Dr. Verdin, okay to discharge from cardiology standpoint if echocardiogram is unremarkable Epigastric Pain: Resolved. Counseled on NSAID use. Continue PPI Hypertension: chronic, BP fairly well controlled. -continue patient's patric, norvasc, HCTZ -monitor BP, adjust antihypertensives as needed Hyperlipidemia: chronic -lipid panel with low HDL, otherwise within normal limits Diabetes Mellitus: Not optimally controlled. On metformin at home with SSI as needed. Hemoglobin A1c 10.6. Would benefit from long-acting insulin, offered medication adjustment while admitted, however the patient declines. Consult case management for assistance with outpatient follow-up. -hold metformin for now -monitor Accu-cheks and cover with SSI Tobacco Use: chronic -counseled on cessation -avoid nicotine patch due to vasoconstriction DVT Prophylaxis: teds/SCDs Discharge Planning Likely discharge later today if echocardiogram is unremarkable. [address] Verdin, echocardiogram essentially normal, patient cleared for discharge Problem Qualifiers (1) Chest pain: Qualified Code: R07.9 - Chest pain, unspecified type James Teran Dec 31, 2016 09:35
[2016-12-31] MEDS ORDERED: OMEP20TA PO (09:37)
[2016-12-31] MEDS ORDERED: ASPI81CH25 CHEW (09:37)
[2016-12-31] MEDS ORDERED: PANTOPRAZOLE SOD 40 MG DELAYED RELEASE TAB PO ONE (09:45)
[2016-12-31 09:48] VITALS: PULSE 72
--- NOTE | 2016-12-31 10:23 | PD.CARD.PN ---
Subjective Subjective Remarks No chest pain, no shortness of breath Objective Medications Current Medications Medications (Trade) Dose Ordered Sig/Kana Route Start Time Stop Time Status Last Admin (NS Flush) 2 ml UNSCH PRN IVF 12/29/16 19:30 12/29/16 19:38 (Norvasc) 10 mg DAILY PO 12/30/16 09:00 12/31/16 09:48 (Nitrostat Sl) 0.4 mg Q5M PRN SL 12/29/16 21:30 (Tylenol) 500 mg Q4H PRN PO 12/29/16 21:30 ([place] 7.5-325 Mg) 1 tab Q4H PRN PO 12/29/16 21:30 (Heparin Inj) 5,000 units Q8H SQ 12/29/16 22:00 12/31/16 06:33 (Prinivil) 2.5 mg DAILY PO 12/31/16 09:00 12/31/16 09:49 (Hydrodiuril) 25 mg DAILY PO 12/31/16 09:00 12/31/16 09:48 (Pill Splitter) 1 ea UNSCH PRN OTHER 12/30/16 10:30 (D50w (Vial) Inj) 50 ml UNSCH PRN IV 12/30/16 10:30 (Glucagon Inj) 1 mg UNSCH PRN OTHER 12/30/16 10:30 (Aspirin Chew) 81 mg DAILY CHEW 12/31/16 09:00 12/31/16 09:48 Vital Signs / I&O Vital Signs Date Time Temp Pulse Resp B/P Pulse Ox O2 Delivery O2 Flow Rate FiO2 12/31/16 07:54 97.9 78 21 138/102 97 12/31/16 04:16 65 12/30/16 23:54 98.1 71 20 150/101 99 12/30/16 20:23 96 12/30/16 19:43 97.9 84 20 128/86 96 12/30/16 11:46 98.2 76 21 131/88 97 Physical Exam GENERAL: NAD, AAOx3 SKIN: Warm and dry. HEAD: Atraumatic. Normocephalic. EYES: Pupils equal and round. No scleral icterus. No injection or drainage. ENT: No nasal bleeding or discharge. Mucous membranes pink and moist. NECK: Trachea midline. No JVD. CARDIOVASCULAR: Regular rate and rhythm. RESPIRATORY: No accessory muscle use. Clear to auscultation. Breath sounds equal bilaterally. GASTROINTESTINAL: Abdomen soft, non-tender, nondistended. Hepatic and splenic margins not palpable. MUSCULOSKELETAL: Extremities without clubbing, cyanosis, or edema. No obvious deformities. NEUROLOGICAL: Awake and alert. No obvious cranial nerve deficits. Motor grossly within normal limits. Five out of 5 muscle strength in the arms and legs. Normal speech. PSYCHIATRIC: Appropriate mood and affect; insight and judgment normal. Laboratory Laboratory Tests Test 12/30/16 12:38 Hemoglobin A1c 10.6 % Total Bilirubin 0.5 MG/DL Direct Bilirubin 0.1 MG/DL Indirect Bilirubin 0.4 MG/DL Aspartate Amino Transf 10 U/L (AST/SGOT) Alanine Aminotransferase 19 U/L (ALT/SGPT) Alkaline Phosphatase 92 U/L Total Creatine Kinase 94 U/L Troponin I LESS THAN 0.02 NG/ML Total Protein 6.8 GM/DL Albumin 3.2 GM/DL Assessment and Plan Problem List: (1) Chest pain (2) DM (diabetes mellitus) (3) HTN (hypertension) Assessment and Plan 1) No further chest pain, troponins negative 2) Stress test showing no ischemic areas 3) Echo today, if no problems then is cardiovascularly stable for discharge 4) group home needs PCP follow up for BP control Problem Qualifiers (1) Chest pain: Qualified Code: R07.9 - Chest pain, unspecified type Galen Verdin DO Dec 31, 2016 10:23
[2016-12-31 11:33] VITALS: BP 141/98; PULSE 71; RESP 22; TEMP 98.6; O2SAT 98
--- NOTE | 2016-12-31 15:01 | ECHRPT ---
Indication: Chest pain, unspecified CONCLUSIONS No evidence of left ventricular hypertrophy. Normal LV systolic function with estimated EF of 65 %. BP: 116 / 75 HR: 68 Rhythm: Sinus MEASUREMENTS (Male / Female) Normal Values Technical Quality:Good 2D ECHO LV Diastolic Diameter PLAX 5.3 cm 4.2 - 5.9 / 3.9 - 5.3 cm LV Systolic Diameter PLAX 3.5 cm IVS Diastolic Thickness 0.9 cm 0.6 - 1.0 / 0.6 - 0.9 cm LVPW Diastolic Thickness 0.8 cm 0.6 - 1.0 / 0.6 - 0.9 cm LV Relative Wall Thickness 0.3 RV Internal Dim ED PLAX 2.1 cm LA Systolic Diameter LX 3.3 cm 3.0 - 4.0 / 2.7 - 3.8 cm M-MODE Aortic Root Diameter MM 3.0 cm AV Cusp Separation MM 2.2 cm DOPPLER Mitral E Point Velocity 81.9 cm/s Mitral A Point Velocity 83.9 cm/s Mitral E to A Ratio 1.0 LV E' Lateral Velocity 8.3 cm/s Mitral E to LV E' Lateral Ratio 9.9 LV E' Septal Velocity 6.8 cm/s Mitral E to LV E' Septal Ratio 12.0 TR Peak Velocity 179.0 cm/s TR Peak Gradient 12.8 mmHg FINDINGS Left Ventricle No evidence of left ventricular hypertrophy. Normal LV systolic function with estimated EF of 65 %. Right Ventricle Normal right ventricular size and systolic function. Left Atrium The left atrial size is normal. Right Atrium The right atrial size is normal. Atrial Septum Normal atrial septal thickness without atrial level shunting by limited color doppler interrogation. Aorta The aortic root and proximal ascending aorta are normal in size on limited imaging. Mitral Valve Structurally normal mitral valve. No mitral valve stenosis or regurgitation. Aortic Valve Trileaflet aortic valve. No aortic valve stenosis or regurgitation. Tricuspid Valve Structurally normal tricuspid valve. No tricuspid valve stenosis or regurgitation. Pulmonary Valve The pulmonary valve is not well visualized. Vessels The inferior vena cava is normal in size. Pericardium No pericardial effusion. Pedro Poon MD, FACC Edited by: [employer] CV Building Maintenance Supervisor (Electronically Signed) Final Date:31 December 2016 15:00 Amended: 01 January 2017 13:34 STELLA
[2016-12-31] MEDS ORDERED: INSULIN ASPART SUPPLEMENTAL SCALE SQ SCH (16:00)
== END 2016-12-31 16:04 | disposition home or self-care (01) ==
LOC: PHED 19:08 → PHEDA 21:20 → NEPGCP 22:56
PROVIDERS: ADMIT Hospitalist; ATTEND Hospitalist
DX: R07.89 Other chest pain (principal); E11.9 Type 2 diabetes mellitus without complications; I10 Essential (primary) hypertension; E78.5 Hyperlipidemia, unspecified; R10.13 Epigastric pain; E78.00 Pure hypercholesterolemia, unspecified; R94.31 Abnormal electrocardiogram [ECG] [EKG]; F17.210 Nicotine dependence, cigarettes, uncomplicated; Z79.84 Long term (current) use of oral hypoglycemic drugs; Z79.4 Long term (current) use of insulin
CPT/HCPCS: 71010; 78452; 80048; 80061; 80076; 82550; 82948; 83036; 83735; 83880; 84484; 85025; 85610; 85730; 93005; 93017; 93306; 96360; 99285; A9502; G0378; J1644; J1815; J2785; J7030; 99281